=== PATIENT | female | born 1940 | race Caucasian/White ===

== ENCOUNTER 2017-02-22 15:52 | Outpatient (CLI) | payer MEDICARE, BC ==
--- NOTE | 2017-02-26 11:40 | OP Clinic Progress Note ---
REASON FOR VISIT: This 76-year-old lady is seen with fairly severe posterior pharyngitis. She has taken azithromycin in the past and had zero problems with this. She has also taken it for a recent left-sided blepharitis that has been fairly severe and she will be seeing her automatic transmission mechanic in this regard tomorrow. She does have posterior pharyngitis on right and left sides fairly similarly. The tongue base is status post a posterior glossectomy. The oropharynx is status post a tonsillectomy. The patient understands the risks associated with taking azithromycin. She has taken it intermittently for years. She has pointed out recent lecture in addition regarding tendonitis and different types of reactions. I have asked her to review the negative aspects on the internet and she says that she will. She still chooses to take this and she has taken it without difficulties in the past. PLAN: She was given a course of azithromycin. She is also using saline nasal sprays in both nostrils to reduce the posterior nasal pharyngitis and rhinitis. VALENTINO
== END 2017-02-22 15:53 ==
LOC: ENT 15:52
PROVIDERS: ATTEND Otolaryngology
DX: J31.2 Chronic pharyngitis (principal); J31.0 Chronic rhinitis
CPT/HCPCS: G0463